=== PATIENT | female | born 1945 | race Caucasian/White ===

== ENCOUNTER 2018-01-28 14:31 | Emergency (ER) | payer MEDICARE, BC ==
[~2018-01-28] VITALS: Ht 152.4 cm; Wt 53.0 kg
[2018-01-28 15:30] LABS: BASOPHILS # (AUTO) 0.02 x10^3/uL (0-0.1); BASOPHILS % (AUTO) 0 % (0-1); EOSINOPHILS # (AUTO) 0.01 x10^3/uL (0-0.4); EOSINOPHILS % (AUTO) 0 % (1-7); INTERNATIONAL NORMALIZED RATIO 1.06 (0.93-1.1); LYMPHOCYTES # (AUTO) 0.83 x10^3/uL (1-3.4); LYMPHOCYTES % (AUTO) 18 % (22-44); MD NO; MEAN CORPUSCULAR HEMOGLOBIN 32.6 pg (27.0-34.8); MEAN CORPUSCULAR HGB CONC 34.2 g/dL (32.4-35.8); MEAN CORPUSCULAR VOLUME 95.1 fL (80-100); MEAN PLATELET VOLUME 8.6 fL (7.4-10.4); MONOCYTES # (AUTO) 0.54 x10^3/uL (0.2-0.8); MONOCYTES % (AUTO) 12 % (2-9); NEUTROPHILS # (AUTO) 3.24 x10^3/uL (1.8-6.8); NEUTROPHILS % (AUTO) 70 % (42-75); PLATELET COUNT 249 x10^3/uL (130-400); RED BLOOD COUNT 4.29 x10^6/uL (3.82-5.3); RED CELL DISTRIBUTION WIDTH 13.8 % (9.6-15.2)
[2018-01-28 15:33] LABS: ALBUMIN 4.2 g/dL (3.4-5.0); ANION GAP 12 mmol/L (5-15); CALCIUM 9.2 mg/dL (8.5-10.1); CHLORIDE 105 mmol/L (98-107)
[2018-01-28 15:36] LABS: ALANINE AMINOTRANSFERASE 43 U/L (12-78); ALKALINE PHOSPHATASE 57 U/L (45-117); BILIRUBIN,TOTAL 1.6 mg/dL (0.2-1.0); CREATININE 0.72 mg/dL (0.55-1.02); TOTAL PROTEIN 7.6 g/dL (6.4-8.2)
[2018-01-28 16:09] LABS: ACETONE, SERUM Trace (10mg/dL) mg/dL (Negative)
[2018-01-28] MEDS ORDERED: POTASSIUM CHLORIDE 20 MEQ TAB.ER.PRT PO ONE (16:30)
[2018-01-28] MEDS ORDERED: POTASSIUM CHLORIDE 20 MEQ PACKET ONE (16:55)
[2018-01-28 17:03] LABS: MICROSCOPIC INDICATED
[2018-01-28 17:12] LABS: CULTURE INDICATED? NO
[2018-01-28 18:33] VITALS: BP 167/94
== END 2018-01-28 20:03 ==
LOC: ED 18:38
DX: R10.9 Unspecified abdominal pain (principal); R41.82 Altered mental status, unspecified
CPT/HCPCS: 36415; 80053; 81001; 82010; 82140; 83605; 83690; 85025; 85610; 93005; 99285

== ENCOUNTER 2018-01-31 11:22 | Inpatient (IN) | payer MEDICARE, BC ==
[~2018-01-31] VITALS: Ht 162.6 cm; Wt 41.6 kg
[2018-01-31] MEDS ORDERED: SODIUM CHLORIDE 0.9% 1,000 ML IV ONE (11:34)
[2018-01-31 11:57] LABS: BASOPHILS # (AUTO) 0.02 x10^3/uL (0-0.1); BASOPHILS % (AUTO) 1 % (0-1); EOSINOPHILS # (AUTO) 0.01 x10^3/uL (0-0.4); EOSINOPHILS % (AUTO) 0 % (1-7); LYMPHOCYTES # (AUTO) 0.92 x10^3/uL (1-3.4); LYMPHOCYTES % (AUTO) 29 % (22-44); MD NO; MEAN CORPUSCULAR HEMOGLOBIN 31.8 pg (27.0-34.8); MEAN CORPUSCULAR HGB CONC 33.8 g/dL (32.4-35.8); MEAN PLATELET VOLUME 8.1 fL (7.4-10.4); MONOCYTES # (AUTO) 0.29 x10^3/uL (0.2-0.8); MONOCYTES % (AUTO) 9 % (2-9); NEUTROPHILS # (AUTO) 1.92 x10^3/uL (1.8-6.8); NEUTROPHILS % (AUTO) 61 % (42-75); PLATELET COUNT 258 x10^3/uL (130-400); RED BLOOD COUNT 4.51 x10^6/uL (3.82-5.3); RED CELL DISTRIBUTION WIDTH 13.4 % (9.6-15.2)
[2018-01-31 11:59] LABS: MICROSCOPIC INDICATED
[2018-01-31] MEDS ORDERED: MORPHINE SULFATE 4 MG/ML, 1ML IVPush PRN (12:00)
[2018-01-31] MEDS ORDERED: SODIUM CHLORIDE FLUSH 10ML SYR IVF ONE (12:00)
[2018-01-31] MEDS ORDERED: PLEASE ENTER HEIGHT AND WEIGHT MC SCH (12:00)
[2018-01-31 12:07] LABS: ALANINE AMINOTRANSFERASE 35 U/L (12-78); ALBUMIN 3.5 g/dL (3.4-5.0); ANION GAP 11 mmol/L (5-15); CALCIUM 8.9 mg/dL (8.5-10.1); CHLORIDE 107 mmol/L (98-107); CREATININE 0.92 mg/dL (0.55-1.02)
[2018-01-31 12:08] LABS: CULTURE INDICATED? YES
[2018-01-31 12:09] LABS: ALKALINE PHOSPHATASE 60 U/L (45-117); BILIRUBIN,TOTAL 1.7 mg/dL (0.2-1.0); TOTAL PROTEIN 6.9 g/dL (6.4-8.2)
[2018-01-31] MEDS ORDERED: LORazepam 2 MG/ML, 1ML ONE ×2 (12:18→12:36)
[2018-01-31] MEDS ORDERED: LORazepam 2 MG/ML, 1ML IVPush ONE ×2 (12:30→13:00)
[2018-01-31] MEDS ORDERED: CEFTRIAXONE PMX 1GM/50ML 50 ML IV ONE (12:30)
[2018-01-31] MEDS ORDERED: OMNIPAQUE 350 MG/ML, 100ML BOTTLE ONE (12:54)
[2018-01-31] MEDS ORDERED: CEFTRIAXONE PMX 1GM/50ML 50 ML ONE (13:37)
[2018-01-31] MEDS ORDERED: LABETALOL 5MG/ML, 20ML IVPush PRN (14:00)
[2018-01-31] MEDS: BISACODYL 5 MG EC TABLET PO SCH (14:00)
[2018-01-31] MEDS ORDERED: ONDANSETRON 2MG/ML, 2ML IVPush PRN (14:00)
[2018-01-31] MEDS ORDERED: POLYETHYLENE GLYCOL 17 GM PACKET PO PRN (14:00)
[2018-01-31] MEDS ORDERED: ONDANSETRON ODT 4 MG PO PRN (14:00)
[2018-01-31] MEDS: ENOXAPARIN 40 MG/0.4 ML SQ SCH (14:00)
[2018-01-31 14:15] LABS: FREE T4 (FREE THYROXINE) 1.09 ng/dL (0.76-1.46)
[2018-01-31] MEDS ORDERED: QUET50TA5 PO (14:17)
[2018-01-31] MEDS ORDERED: FLUO20CA19 PO (14:19)
[2018-01-31] MEDS ORDERED: ARIP10TA33 PO (14:20)
[2018-01-31] MEDS ORDERED: ACET325C5 PO (14:23)
[2018-01-31] MEDS ORDERED: MAG355OR15 PO (14:25)
[2018-01-31 19:03] VITALS: BP 116/73
[2018-01-31] MEDS: QUETIAPINE 25MG TABLET PO SCH (20:42)
[2018-02-01 00:51] VITALS: BP 116/67
[2018-02-01 05:41] LABS: MEAN CORPUSCULAR HEMOGLOBIN 32.4 pg (27.0-34.8); MEAN CORPUSCULAR HGB CONC 34.2 g/dL (32.4-35.8); MEAN CORPUSCULAR VOLUME 94.7 fL (80-100); MEAN PLATELET VOLUME 8.3 fL (7.4-10.4); PLATELET COUNT 200 x10^3/uL (130-400); RED BLOOD COUNT 3.83 x10^6/uL (3.82-5.3); RED CELL DISTRIBUTION WIDTH 13.5 % (9.6-15.2)
[2018-02-01 05:51] LABS: ANION GAP 7 mmol/L (5-15); CALCIUM 8.4 mg/dL (8.5-10.1); CHLORIDE 106 mmol/L (98-107); CREATININE 0.62 mg/dL (0.55-1.02)
[2018-02-01 06:12] LABS: MD YES
[2018-02-01 06:18] LABS: <PLATELET ESTIMATE> ADEQUATE; <PLT MORPHOLOGY> NORMAL PLT MORPH; BASOS#(MANUAL) 0.03 x10^3/uL (0-0.1); BASOS% (MANUAL) 1 % (0-1); EOS#(MANUAL) 0.06 x10^3/uL (0.0-0.4); EOS% (MANUAL) 2 % (1-7); LYMPH#(MANUAL) 1.54 x10^3/uL (1-3.4); LYMPHS% (MANUAL) 48 % (22-44); MONOS% (MANUAL) 3 % (2-9); SEG#(MANUAL) 1.47 x10^3/uL (1.8-6.8); SEGS% (MANUAL) 46 % (42-75)
[2018-02-01 06:48] LABS: <RBC MORPHOLOGY> NORMAL
[2018-02-01 07:01] VITALS: BP 121/67
[2018-02-01] MEDS: ENOXAPARIN 40 MG/0.4 ML SQ SCH (07:24)
[2018-02-01] MEDS: MAGNESIUM HYDROXIDE 8%, 30ML UDC PO SCH (07:24)
[2018-02-01] MEDS: SENNA/DOCUSATE TABLET PO SCH (07:24)
[2018-02-01] MEDS: BISACODYL 5 MG EC TABLET PO SCH (07:24)
[2018-02-01] MEDS ORDERED: POTASSIUM CHLORIDE 20 MEQ TAB.ER.PRT PO ONE ×2 (07:30→11:30)
[2018-02-01] MEDS ORDERED: ACETAMINOPHEN 325 MG TABLET PO PRN (07:30)
[2018-02-01] MEDS ORDERED: PINK LADY ENEMA 490 ML BOTTLE PR SCH (07:30)
[2018-02-01] MEDS: FLUOXETINE HCL 20 MG CAPSULE PO SCH (07:37)
[2018-02-01] MEDS: ARIPIPRAZOLE 10 MG TABLET PO SCH (07:48)
[2018-02-01] MEDS: SODIUM CHLORIDE 0.45% 1,000 ML IV SCH ×2 (07:48→16:24)
[2018-02-01 13:53] VITALS: BP 121/79
[2018-02-01 19:00] VITALS: BP 129/77
[2018-02-01] MEDS: QUETIAPINE 25MG TABLET PO SCH (20:02)
[2018-02-02] MEDS: SODIUM CHLORIDE 0.45% 1,000 ML IV SCH ×3 (00:37→17:37)
[2018-02-02 01:31] VITALS: BP 147/77
[2018-02-02 05:36] LABS: BASOPHILS # (AUTO) 0.03 x10^3/uL (0-0.1); BASOPHILS % (AUTO) 1 % (0-1); EOSINOPHILS # (AUTO) 0.08 x10^3/uL (0-0.4); EOSINOPHILS % (AUTO) 2 % (1-7); LYMPHOCYTES % (AUTO) 30 % (22-44); MD NO; MEAN CORPUSCULAR HEMOGLOBIN 32.5 pg (27.0-34.8); MEAN CORPUSCULAR HGB CONC 34.3 g/dL (32.4-35.8); MEAN CORPUSCULAR VOLUME 94.9 fL (80-100); MEAN PLATELET VOLUME 8.4 fL (7.4-10.4); MONOCYTES # (AUTO) 0.37 x10^3/uL (0.2-0.8); MONOCYTES % (AUTO) 10 % (2-9); NEUTROPHILS # (AUTO) 2.07 x10^3/uL (1.8-6.8); NEUTROPHILS % (AUTO) 57 % (42-75); PLATELET COUNT 213 x10^3/uL (130-400); RED BLOOD COUNT 3.85 x10^6/uL (3.82-5.3); RED CELL DISTRIBUTION WIDTH 13.3 % (9.6-15.2)
[2018-02-02 05:46] LABS: ANION GAP 8 mmol/L (5-15); CALCIUM 8.2 mg/dL (8.5-10.1); CHLORIDE 106 mmol/L (98-107)
[2018-02-02 05:47] LABS: CREATININE 0.59 mg/dL (0.55-1.02)
[2018-02-02 06:43] VITALS: BP 127/72
[2018-02-02] MEDS: MAGNESIUM HYDROXIDE 8%, 30ML UDC PO SCH (09:07)
[2018-02-02] MEDS: ARIPIPRAZOLE 10 MG TABLET PO SCH (09:07)
[2018-02-02] MEDS: FLUOXETINE HCL 20 MG CAPSULE PO SCH (09:07)
[2018-02-02] MEDS: BISACODYL 5 MG EC TABLET PO SCH (09:07)
[2018-02-02] MEDS: ENOXAPARIN 40 MG/0.4 ML SQ SCH (09:11)
[2018-02-02] MEDS: SENNA/DOCUSATE TABLET PO SCH (09:12)
[2018-02-02] MEDS: AMPICILLIN/SULBACTAM 3 GM in SODIUM CHLORIDE 0.9% 100 ML IV SCH ×3 (12:10→23:43)
[2018-02-02 14:16] VITALS: BP 128/73
[2018-02-02 19:17] VITALS: BP 128/70
[2018-02-02] MEDS: QUETIAPINE 25MG TABLET PO SCH (21:09)
[2018-02-03] MEDS: SODIUM CHLORIDE 0.45% 1,000 ML IV SCH ×3 (01:07→23:39)
[2018-02-03 03:15] VITALS: BP 121/71
[2018-02-03 04:50] LABS: BASOPHILS # (AUTO) 0.03 x10^3/uL (0-0.1); BASOPHILS % (AUTO) 1 % (0-1); EOSINOPHILS # (AUTO) 0.09 x10^3/uL (0-0.4); EOSINOPHILS % (AUTO) 3 % (1-7); LYMPHOCYTES % (AUTO) 36 % (22-44); MD NO; MEAN CORPUSCULAR HEMOGLOBIN 32.9 pg (27.0-34.8); MEAN CORPUSCULAR HGB CONC 34.7 g/dL (32.4-35.8); MEAN CORPUSCULAR VOLUME 94.8 fL (80-100); MEAN PLATELET VOLUME 8.3 fL (7.4-10.4); MONOCYTES # (AUTO) 0.33 x10^3/uL (0.2-0.8); MONOCYTES % (AUTO) 11 % (2-9); NEUTROPHILS # (AUTO) 1.49 x10^3/uL (1.8-6.8); NEUTROPHILS % (AUTO) 49 % (42-75); PLATELET COUNT 208 x10^3/uL (130-400); RED BLOOD COUNT 3.77 x10^6/uL (3.82-5.3); RED CELL DISTRIBUTION WIDTH 13.3 % (9.6-15.2)
[2018-02-03 04:59] LABS: ALBUMIN 2.9 g/dL (3.4-5.0); ANION GAP 8 mmol/L (5-15); CALCIUM 7.9 mg/dL (8.5-10.1); CHLORIDE 106 mmol/L (98-107); CREATININE 0.62 mg/dL (0.55-1.02)
[2018-02-03] MEDS: AMPICILLIN/SULBACTAM 3 GM in SODIUM CHLORIDE 0.9% 100 ML IV SCH ×4 (05:16→23:35)
[2018-02-03] MEDS ORDERED: POTASSIUM CHLORIDE 20 MEQ TAB.ER.PRT PO ONE ×2 (07:30→11:30)
[2018-02-03 08:43] VITALS: BP 116/69
[2018-02-03] MEDS: MAGNESIUM HYDROXIDE 8%, 30ML UDC PO SCH (09:00)
[2018-02-03] MEDS: BISACODYL 5 MG EC TABLET PO SCH (09:00)
[2018-02-03] MEDS: ARIPIPRAZOLE 10 MG TABLET PO SCH (09:35)
[2018-02-03] MEDS: FLUOXETINE HCL 20 MG CAPSULE PO SCH (09:37)
[2018-02-03] MEDS: SENNA/DOCUSATE TABLET PO SCH (09:37)
[2018-02-03] MEDS: ENOXAPARIN 40 MG/0.4 ML SQ SCH (09:41)
[2018-02-03 12:45] VITALS: BP 127/72
[2018-02-03 18:29] VITALS: BP 145/83
[2018-02-03] MEDS: QUETIAPINE 25MG TABLET PO SCH (19:59)
[2018-02-04 01:22] VITALS: BP 135/80
[2018-02-04] MEDS: AMPICILLIN/SULBACTAM 3 GM in SODIUM CHLORIDE 0.9% 100 ML IV SCH ×4 (05:47→23:50)
[2018-02-04 07:05] VITALS: BP 123/70
[2018-02-04] MEDS: SODIUM CHLORIDE 0.45% 1,000 ML IV SCH ×2 (08:22→17:47)
[2018-02-04] MEDS: BISACODYL 5 MG EC TABLET PO SCH (09:00)
[2018-02-04] MEDS: MAGNESIUM HYDROXIDE 8%, 30ML UDC PO SCH (09:00)
[2018-02-04] MEDS: SENNA/DOCUSATE TABLET PO SCH (09:00)
[2018-02-04] MEDS: ARIPIPRAZOLE 10 MG TABLET PO SCH (09:12)
[2018-02-04] MEDS: FLUOXETINE HCL 20 MG CAPSULE PO SCH (09:12)
[2018-02-04] MEDS: ENOXAPARIN 40 MG/0.4 ML SQ SCH (09:12)
[2018-02-04 13:00] VITALS: BP 131/80
[2018-02-04 18:41] VITALS: BP 138/79
[2018-02-04] MEDS: QUETIAPINE 25MG TABLET PO SCH (19:31)
[2018-02-05 02:12] VITALS: BP 127/69
[2018-02-05] MEDS: SODIUM CHLORIDE 0.45% 1,000 ML IV SCH (02:24)
[2018-02-05 04:58] LABS: ALBUMIN 3.1 g/dL (3.4-5.0); ANION GAP 5 mmol/L (5-15); CALCIUM 8.3 mg/dL (8.5-10.1); CHLORIDE 104 mmol/L (98-107); CREATININE 0.76 mg/dL (0.55-1.02)
[2018-02-05] MEDS: AMPICILLIN/SULBACTAM 3 GM in SODIUM CHLORIDE 0.9% 100 ML IV SCH (05:43)
[2018-02-05 07:05] VITALS: BP 136/78
[2018-02-05] MEDS: BISACODYL 5 MG EC TABLET PO SCH (09:00)
[2018-02-05] MEDS: MAGNESIUM HYDROXIDE 8%, 30ML UDC PO SCH (09:00)
[2018-02-05] MEDS: SENNA/DOCUSATE TABLET PO SCH (09:07)
[2018-02-05] MEDS: ARIPIPRAZOLE 10 MG TABLET PO SCH (09:08)
[2018-02-05] MEDS: FLUOXETINE HCL 20 MG CAPSULE PO SCH (09:08)
[2018-02-05] MEDS: ENOXAPARIN 40 MG/0.4 ML SQ SCH (09:08)
[2018-02-05 14:02] VITALS: BP 102/64
[2018-02-05 19:27] VITALS: BP 104/63
[2018-02-05] MEDS: QUETIAPINE 25MG TABLET PO SCH (20:45)
[2018-02-05] MEDS: AMOXICILLIN/CLAV 875-125MG TABLET PO SCH (20:45)
[2018-02-06 01:40] VITALS: BP 118/82
[2018-02-06 06:54] VITALS: BP 121/67
[2018-02-06] MEDS: SENNA/DOCUSATE TABLET PO SCH (08:54)
[2018-02-06] MEDS: ARIPIPRAZOLE 10 MG TABLET PO SCH (08:54)
[2018-02-06] MEDS: AMOXICILLIN/CLAV 875-125MG TABLET PO SCH ×2 (08:54→20:48)
[2018-02-06] MEDS: ENOXAPARIN 40 MG/0.4 ML SQ SCH (08:55)
[2018-02-06] MEDS: FLUOXETINE HCL 20 MG CAPSULE PO SCH (08:55)
[2018-02-06] MEDS: BISACODYL 5 MG EC TABLET PO SCH (08:56)
[2018-02-06] MEDS: MAGNESIUM HYDROXIDE 8%, 30ML UDC PO SCH (08:56)
[2018-02-06 14:20] VITALS: BP 112/70
[2018-02-06 15:21] LABS: ACETAMINOPHEN 3 mcg/mL (10-30)
[2018-02-06 15:22] LABS: SALICYLATE LEVEL < 1.7 mg/dL (2.8-20.0)
[2018-02-06 19:42] VITALS: BP 116/75
[2018-02-06] MEDS: QUETIAPINE 25MG TABLET PO SCH (20:48)
[2018-02-07 01:33] VITALS: BP 133/77
[2018-02-07 05:15] LABS: AMPHETAMINE SCREEN, URINE Negative (Negative); BARBITURATE SCREEN, URINE Negative (Negative); BENZODIAZEPINE SCREEN, URINE Negative (Negative); CANNABINOID SCREEN, URINE Negative (Negative); COCAINE SCREEN, URINE Negative (Negative); METHADONE SCREEN, URINE Negative (Negative); OPIATE SCREEN, URINE Negative (Negative)
[2018-02-07 07:15] VITALS: BP 125/70
[2018-02-07] MEDS: BISACODYL 5 MG EC TABLET PO SCH (09:25)
[2018-02-07] MEDS: ARIPIPRAZOLE 10 MG TABLET PO SCH (09:25)
[2018-02-07] MEDS: AMOXICILLIN/CLAV 875-125MG TABLET PO SCH ×2 (09:25→21:34)
[2018-02-07] MEDS: MAGNESIUM HYDROXIDE 8%, 30ML UDC PO SCH (09:26)
[2018-02-07] MEDS: FLUOXETINE HCL 20 MG CAPSULE PO SCH (09:26)
[2018-02-07] MEDS: ENOXAPARIN 40 MG/0.4 ML SQ SCH (09:26)
[2018-02-07] MEDS: SENNA/DOCUSATE TABLET PO SCH (11:33)
[2018-02-07 14:20] VITALS: BP 111/68
[2018-02-07 19:51] VITALS: BP 117/71
[2018-02-07] MEDS: QUETIAPINE 25MG TABLET PO SCH (21:35)
[2018-02-08 03:19] VITALS: BP 116/76
[2018-02-08 06:58] VITALS: BP 128/77
[2018-02-08] MEDS: FLUOXETINE HCL 20 MG CAPSULE PO SCH (08:36)
[2018-02-08] MEDS: AMOXICILLIN/CLAV 875-125MG TABLET PO SCH (08:36)
[2018-02-08] MEDS: MAGNESIUM HYDROXIDE 8%, 30ML UDC PO SCH (08:37)
[2018-02-08] MEDS: BISACODYL 5 MG EC TABLET PO SCH (08:37)
[2018-02-08] MEDS: SENNA/DOCUSATE TABLET PO SCH (08:37)
[2018-02-08] MEDS: ARIPIPRAZOLE 10 MG TABLET PO SCH (08:37)
[2018-02-08] MEDS: ENOXAPARIN 40 MG/0.4 ML SQ SCH (08:37)
[2018-02-08 12:21] VITALS: BP 125/72
[2018-02-09] MEDS ORDERED: AMOX1TAB64 PO (15:09)
== END 2018-02-08 16:11 | DRG 871 ==
LOC: ED 12:15 → EDIP 13:03 → 3NE 14:05
PROVIDERS: ADMIT Hospitalist; ATTEND Hospitalist
PROC: 0T9B70Z Drainage of Bladder with Drainage Device, Via Natural or Artificial Opening (ICD-10-PCS; principal; 2018-01-31)
DX: A41.9 Sepsis, unspecified organism (principal); E43 Unspecified severe protein-calorie malnutrition; N39.0 Urinary tract infection, site not specified; F23 Brief psychotic disorder; F32.3 Major depressive disorder, single episode, severe with psychotic features; K59.00 Constipation, unspecified; R33.9 Retention of urine, unspecified; B95.2 Enterococcus as the cause of diseases classified elsewhere; E03.9 Hypothyroidism, unspecified; F43.10 Post-traumatic stress disorder, unspecified; G31.84 Mild cognitive impairment of uncertain or unknown etiology; F41.9 Anxiety disorder, unspecified; Z79.899 Other long term (current) drug therapy; Z81.8 Family history of other mental and behavioral disorders
CPT/HCPCS: 36415; 74177; 80048; 80053; 80307; 80329; 81001; 82040; 83690; 83735; 84100; 84439; 84443; 85025; 87040; 87077; 87086; 87186; 96374; 96376; G0378; J0295; J0696; J1650; Q9967; 92522-GN; G0480; G0515-GN; J2060; J7030

== ENCOUNTER 2018-02-08 15:09 | Inpatient (IN) | payer MEDICARE, BC ==
[~2018-02-08] VITALS: Ht 160 cm; Wt 42.7 kg
[~2018-02-08 15:09] MED LIST: ACET325C5 PO; ARIP10TA33 PO; FLUO20CA19 PO; MAG355OR15 PO; QUET50TA5 PO
[2018-02-08] MEDS ORDERED: ONDANSETRON ODT 4 MG PO PRN (15:30)
[2018-02-08] MEDS ORDERED: BISACODYL 10 MG SUPP PR PRN (15:30)
[2018-02-08] MEDS ORDERED: PLEASE ENTER HEIGHT AND WEIGHT MC SCH (16:00)
[2018-02-08 16:11] VITALS: BP 128/79
[2018-02-08 19:12] VITALS: BP 119/73
[2018-02-08] MEDS: ACETAMINOPHEN 325 MG TABLET PO PRN (20:52)
[2018-02-08] MEDS: AMOXICILLIN/CLAV 875-125MG TABLET PO SCH (20:52)
[2018-02-08] MEDS: DOCUSATE 100 MG CAPSULE PO PRN (20:53)
[2018-02-09 06:29] LABS: CHOL/HDL RATIO 3.7; LDL/HDL RATIO 1.9 (0.5-3.0)
[2018-02-09 07:24] VITALS: BP 126/71
[2018-02-09] MEDS: SENNA/DOCUSATE TABLET PO SCH (08:58)
[2018-02-09] MEDS: DOCUSATE 100 MG CAPSULE PO PRN (08:58)
[2018-02-09] MEDS: AMOXICILLIN/CLAV 875-125MG TABLET PO SCH ×2 (08:58→20:22)
[2018-02-09] MEDS ORDERED: AMOX1TAB64 PO (15:09)
[2018-02-09 19:58] VITALS: BP 124/77
[2018-02-09] MEDS: QUETIAPINE 25MG TABLET PO SCH (20:22)
[2018-02-10 07:05] VITALS: BP 143/76
[2018-02-10] MEDS: SENNA/DOCUSATE TABLET PO SCH (08:50)
[2018-02-10] MEDS: AMOXICILLIN/CLAV 875-125MG TABLET PO SCH (08:50)
[2018-02-10] MEDS: ARIPIPRAZOLE 10 MG TABLET PO SCH (08:50)
[2018-02-10] MEDS: FLUOXETINE HCL 20 MG CAPSULE PO SCH (08:50)
[2018-02-10 19:35] VITALS: BP 127/73
[2018-02-10] MEDS: DOCUSATE 100 MG CAPSULE PO PRN (20:31)
[2018-02-10] MEDS: QUETIAPINE 25MG TABLET PO SCH (20:31)
[2018-02-11 07:05] VITALS: BP 138/76
[2018-02-11] MEDS: ARIPIPRAZOLE 10 MG TABLET PO SCH (08:26)
[2018-02-11] MEDS: SENNA/DOCUSATE TABLET PO SCH (08:26)
[2018-02-11] MEDS: FLUOXETINE HCL 20 MG CAPSULE PO SCH (08:26)
[2018-02-11 19:21] VITALS: BP 121/79
[2018-02-11] MEDS: QUETIAPINE 25MG TABLET PO SCH (20:14)
[2018-02-12 07:58] VITALS: BP 113/68
[2018-02-12] MEDS: FOLIC ACID 1 MG TABLET PO SCH (08:38)
[2018-02-12] MEDS: FLUOXETINE HCL 20 MG CAPSULE PO SCH (08:39)
[2018-02-12] MEDS: ARIPIPRAZOLE 10 MG TABLET PO SCH (08:39)
[2018-02-12] MEDS: SENNA/DOCUSATE TABLET PO SCH (09:00)
[2018-02-12 19:23] VITALS: BP 105/68
[2018-02-12] MEDS: QUETIAPINE 25MG TABLET PO SCH (21:42)
[2018-02-13 07:47] VITALS: BP 123/69
[2018-02-13] MEDS: ARIPIPRAZOLE 10 MG TABLET PO SCH (08:27)
[2018-02-13] MEDS: FLUOXETINE HCL 20 MG CAPSULE PO SCH (08:27)
[2018-02-13] MEDS: FOLIC ACID 1 MG TABLET PO SCH (08:27)
[2018-02-13] MEDS: SENNA/DOCUSATE TABLET PO SCH (08:34)
[2018-02-13 19:25] VITALS: BP 119/77
[2018-02-13] MEDS: QUETIAPINE 25MG TABLET PO SCH (20:35)
[2018-02-13] MEDS: DOCUSATE 100 MG CAPSULE PO PRN (20:35)
[2018-02-14 07:21] VITALS: BP 124/69
[2018-02-14] MEDS: ARIPIPRAZOLE 10 MG TABLET PO SCH (08:39)
[2018-02-14] MEDS: FLUOXETINE HCL 20 MG CAPSULE PO SCH (08:39)
[2018-02-14] MEDS: FOLIC ACID 1 MG TABLET PO SCH (08:39)
[2018-02-14] MEDS: SENNA/DOCUSATE TABLET PO SCH (08:40)
[2018-02-14] MEDS: DOCUSATE 100 MG CAPSULE PO PRN (08:40)
[2018-02-14 19:52] VITALS: BP 142/82
[2018-02-14] MEDS: QUETIAPINE 25MG TABLET PO SCH (20:16)
[2018-02-15 07:56] VITALS: BP 126/74
[2018-02-15] MEDS: SENNA/DOCUSATE TABLET PO SCH (08:59)
[2018-02-15] MEDS: CARIPRAZINE 1.5 MG HOMEMEDPO SCH (08:59)
[2018-02-15] MEDS: FOLIC ACID 1 MG TABLET PO SCH (08:59)
[2018-02-15] MEDS: FLUOXETINE HCL 20 MG CAPSULE PO SCH (09:00)
[2018-02-15 19:35] VITALS: BP 118/77
[2018-02-15] MEDS: QUETIAPINE 25MG TABLET PO SCH (20:26)
[2018-02-16 07:35] VITALS: BP 133/78
[2018-02-16] MEDS: SENNA/DOCUSATE TABLET PO SCH (08:35)
[2018-02-16] MEDS: CARIPRAZINE 1.5 MG HOMEMEDPO SCH (08:35)
[2018-02-16] MEDS: FOLIC ACID 1 MG TABLET PO SCH (08:35)
[2018-02-16] MEDS: FLUOXETINE HCL 20 MG CAPSULE PO SCH (08:35)
[2018-02-16 19:33] VITALS: BP 129/80
[2018-02-16] MEDS: QUETIAPINE 25MG TABLET PO SCH (20:28)
[2018-02-17 07:52] VITALS: BP 138/76
[2018-02-17] MEDS: SENNA/DOCUSATE TABLET PO SCH (08:39)
[2018-02-17] MEDS: CARIPRAZINE 1.5 MG HOMEMEDPO SCH (08:39)
[2018-02-17] MEDS: FLUOXETINE HCL 20 MG CAPSULE PO SCH (08:39)
[2018-02-17] MEDS: FOLIC ACID 1 MG TABLET PO SCH (08:39)
[2018-02-17 19:26] VITALS: BP 111/75
[2018-02-17] MEDS: QUETIAPINE 25MG TABLET PO SCH (20:26)
[2018-02-18 07:16] VITALS: BP 128/72
[2018-02-18] MEDS: FLUOXETINE HCL 20 MG CAPSULE PO SCH (08:28)
[2018-02-18] MEDS: CARIPRAZINE 3 MG HOMEMEDPO SCH (08:28)
[2018-02-18] MEDS: FOLIC ACID 1 MG TABLET PO SCH (08:28)
[2018-02-18] MEDS: SENNA/DOCUSATE TABLET PO SCH (08:28)
[2018-02-18 19:15] VITALS: BP 122/71
[2018-02-18] MEDS: QUETIAPINE 25MG TABLET PO SCH (20:24)
[2018-02-19 07:30] VITALS: BP 114/75
[2018-02-19] MEDS: CARIPRAZINE 3 MG HOMEMEDPO SCH (09:10)
[2018-02-19] MEDS: FOLIC ACID 1 MG TABLET PO SCH (09:11)
[2018-02-19] MEDS: SENNA/DOCUSATE TABLET PO SCH (09:11)
[2018-02-19] MEDS: FLUOXETINE HCL 20 MG CAPSULE PO SCH (09:11)
[2018-02-19 19:52] VITALS: BP 109/69
[2018-02-19] MEDS: QUETIAPINE 25MG TABLET PO SCH (20:31)
[2018-02-20 07:59] VITALS: BP 122/73
[2018-02-20] MEDS: CARIPRAZINE 3 MG HOMEMEDPO SCH (09:30)
[2018-02-20] MEDS: SENNA/DOCUSATE TABLET PO SCH (09:30)
[2018-02-20] MEDS: FLUOXETINE HCL 20 MG CAPSULE PO SCH (09:30)
[2018-02-20] MEDS: FOLIC ACID 1 MG TABLET PO SCH (09:30)
[2018-02-20 19:54] VITALS: BP 122/76
[2018-02-20] MEDS: QUETIAPINE 25MG TABLET PO SCH (21:27)
[2018-02-21 07:48] VITALS: BP 128/75
[2018-02-21] MEDS: SENNA/DOCUSATE TABLET PO SCH (09:58)
[2018-02-21] MEDS: FOLIC ACID 1 MG TABLET PO SCH (09:58)
[2018-02-21] MEDS: FLUOXETINE HCL 20 MG CAPSULE PO SCH (09:58)
[2018-02-21] MEDS: CARIPRAZINE 3 MG HOMEMEDPO SCH (09:59)
[2018-02-21 19:40] VITALS: BP 138/78
[2018-02-21] MEDS: QUETIAPINE 25MG TABLET PO SCH (21:01)
[2018-02-22 07:36] VITALS: BP 169/89
[2018-02-22] MEDS: FOLIC ACID 1 MG TABLET PO SCH (09:13)
[2018-02-22] MEDS: SENNA/DOCUSATE TABLET PO SCH (09:13)
[2018-02-22] MEDS: FLUOXETINE HCL 20 MG CAPSULE PO SCH (09:13)
[2018-02-22] MEDS: CARIPRAZINE 3 MG HOMEMEDPO SCH (09:28)
[2018-02-22 19:53] VITALS: BP 153/80
[2018-02-22] MEDS: QUETIAPINE 25MG TABLET PO SCH (20:11)
[2018-02-23 07:36] VITALS: BP 152/84
[2018-02-23] MEDS: CARIPRAZINE 3 MG HOMEMEDPO SCH (08:47)
[2018-02-23] MEDS: FLUOXETINE HCL 20 MG CAPSULE PO SCH (08:48)
[2018-02-23] MEDS: SENNA/DOCUSATE TABLET PO SCH ×2 (08:48→09:00)
[2018-02-23] MEDS: FOLIC ACID 1 MG TABLET PO SCH (08:48)
[2018-02-23 19:38] VITALS: BP 132/84
[2018-02-23] MEDS: QUETIAPINE 25MG TABLET PO SCH (20:31)
[2018-02-24 07:16] VITALS: BP 125/71
[2018-02-24] MEDS: CARIPRAZINE 3 MG HOMEMEDPO SCH (09:00)
[2018-02-24] MEDS: SENNA/DOCUSATE TABLET PO SCH (09:34)
[2018-02-24] MEDS: FOLIC ACID 1 MG TABLET PO SCH (09:34)
[2018-02-24] MEDS: FLUOXETINE HCL 20 MG CAPSULE PO SCH (09:34)
[2018-02-24 19:30] VITALS: BP 124/75
[2018-02-24] MEDS: QUETIAPINE 25MG TABLET PO SCH (20:46)
[2018-02-25 07:44] VITALS: BP 138/82
[2018-02-25] MEDS: CARIPRAZINE 3 MG HOMEMEDPO SCH (08:46)
[2018-02-25] MEDS: FOLIC ACID 1 MG TABLET PO SCH (08:47)
[2018-02-25] MEDS: SENNA/DOCUSATE TABLET PO SCH (08:48)
[2018-02-25] MEDS: FLUOXETINE HCL 20 MG CAPSULE PO SCH (08:48)
[2018-02-25 19:41] VITALS: BP 130/79
[2018-02-25] MEDS: QUETIAPINE 25MG TABLET PO SCH (20:42)
[2018-02-26] MEDS: FLUOXETINE HCL 20 MG CAPSULE PO SCH (08:29)
[2018-02-26] MEDS: POLYETHYLENE GLYCOL 17 GM PACKET PO PRN (08:29)
[2018-02-26] MEDS: CARIPRAZINE 4.5 MG HOMEMEDPO SCH (08:30)
[2018-02-26] MEDS: FOLIC ACID 1 MG TABLET PO SCH (08:30)
[2018-02-26] MEDS: SENNA/DOCUSATE TABLET PO SCH (08:30)
[2018-02-26 08:34] VITALS: BP 144/80
[2018-02-26 19:21] VITALS: BP 136/77
[2018-02-26] MEDS: QUETIAPINE 25MG TABLET PO SCH (20:30)
[2018-02-27 07:20] VITALS: BP 124/76
[2018-02-27] MEDS: CARIPRAZINE 4.5 MG HOMEMEDPO SCH (08:04)
[2018-02-27] MEDS: FLUOXETINE HCL 20 MG CAPSULE PO SCH (08:04)
[2018-02-27] MEDS: SENNA/DOCUSATE TABLET PO SCH (08:04)
[2018-02-27] MEDS: FOLIC ACID 1 MG TABLET PO SCH (08:04)
[2018-02-27] MEDS: POLYETHYLENE GLYCOL 17 GM PACKET PO PRN (08:05)
[2018-02-27 19:25] VITALS: BP 151/81
[2018-02-27] MEDS: DOCUSATE 100 MG CAPSULE PO PRN (20:21)
[2018-02-27] MEDS: QUETIAPINE 25MG TABLET PO SCH (20:21)
[2018-02-27] MEDS: ACETAMINOPHEN 325 MG TABLET PO PRN (20:21)
[2018-02-28 07:34] VITALS: BP 144/76
[2018-02-28] MEDS: SENNA/DOCUSATE TABLET PO SCH (07:55)
[2018-02-28] MEDS: FOLIC ACID 1 MG TABLET PO SCH (07:55)
[2018-02-28] MEDS: FLUOXETINE HCL 20 MG CAPSULE PO SCH (07:55)
[2018-02-28] MEDS: POLYETHYLENE GLYCOL 17 GM PACKET PO PRN (07:56)
[2018-02-28] MEDS: CARIPRAZINE 4.5 MG HOMEMEDPO SCH (08:07)
[2018-02-28 19:38] VITALS: BP 118/80
[2018-02-28] MEDS: ACETAMINOPHEN 325 MG TABLET PO PRN (20:52)
[2018-02-28] MEDS: QUETIAPINE 25MG TABLET PO SCH (20:52)
[2018-03-01 07:46] VITALS: BP 138/83
[2018-03-01] MEDS: CARIPRAZINE 4.5 MG HOMEMEDPO SCH (09:00)
[2018-03-01] MEDS: FOLIC ACID 1 MG TABLET PO SCH (09:22)
[2018-03-01] MEDS: SENNA/DOCUSATE TABLET PO SCH (09:22)
[2018-03-01] MEDS: FLUOXETINE HCL 20 MG CAPSULE PO SCH (09:23)
[2018-03-01 19:33] VITALS: BP 119/55
[2018-03-01] MEDS: QUETIAPINE 25MG TABLET PO SCH (20:27)
[2018-03-02 07:51] VITALS: BP 155/82
[2018-03-02] MEDS: FOLIC ACID 1 MG TABLET PO SCH (08:18)
[2018-03-02] MEDS: SENNA/DOCUSATE TABLET PO SCH (08:18)
[2018-03-02] MEDS: CARIPRAZINE 4.5 MG HOMEMEDPO SCH (08:18)
[2018-03-02] MEDS: FLUOXETINE HCL 20 MG CAPSULE PO SCH (08:18)
[2018-03-02 19:22] VITALS: BP 112/75
[2018-03-02] MEDS: QUETIAPINE 25MG TABLET PO SCH (21:08)
[2018-03-03 07:47] VITALS: BP 167/78
[2018-03-03] MEDS: SENNA/DOCUSATE TABLET PO SCH (08:27)
[2018-03-03] MEDS: CARIPRAZINE 4.5 MG HOMEMEDPO SCH (08:27)
[2018-03-03] MEDS: FOLIC ACID 1 MG TABLET PO SCH (08:27)
[2018-03-03] MEDS: FLUOXETINE HCL 20 MG CAPSULE PO SCH (08:27)
[2018-03-03 19:22] VITALS: BP 110/72
[2018-03-03] MEDS: QUETIAPINE 25MG TABLET PO SCH (21:06)
[2018-03-04 08:52] VITALS: BP 152/82
[2018-03-04] MEDS: CARIPRAZINE 4.5 MG HOMEMEDPO SCH (09:00)
[2018-03-04] MEDS: SENNA/DOCUSATE TABLET PO SCH (09:05)
[2018-03-04] MEDS: FOLIC ACID 1 MG TABLET PO SCH (09:05)
[2018-03-04] MEDS: FLUOXETINE HCL 20 MG CAPSULE PO SCH (09:06)
[2018-03-04 19:19] VITALS: BP 101/68
[2018-03-04] MEDS: QUETIAPINE 25MG TABLET PO SCH (20:03)
[2018-03-05 07:23] VITALS: BP 147/80
[2018-03-05] MEDS: FLUOXETINE HCL 20 MG CAPSULE PO SCH (08:24)
[2018-03-05] MEDS: FOLIC ACID 1 MG TABLET PO SCH (08:24)
[2018-03-05] MEDS: CARIPRAZINE 4.5 MG HOMEMEDPO SCH (08:25)
[2018-03-05] MEDS: SENNA/DOCUSATE TABLET PO SCH (08:25)
[2018-03-05 19:40] VITALS: BP 135/83
[2018-03-05] MEDS: QUETIAPINE 25MG TABLET PO SCH (20:56)
[2018-03-06 07:51] VITALS: BP 144/87
[2018-03-06] MEDS: SENNA/DOCUSATE TABLET PO SCH (08:52)
[2018-03-06] MEDS: FOLIC ACID 1 MG TABLET PO SCH (08:52)
[2018-03-06] MEDS: FLUOXETINE HCL 20 MG CAPSULE PO SCH (08:52)
[2018-03-06] MEDS: CARIPRAZINE 4.5 MG HOMEMEDPO SCH (08:53)
[2018-03-06] MEDS ORDERED: FOLI-17 PO (17:12)
[2018-03-06] MEDS ORDERED: QUET25TA PO (17:12)
[2018-03-06] MEDS ORDERED: CARIPRAZINE HOMEMEDPO (17:12)
[2018-03-06 20:20] VITALS: BP 153/85
[2018-03-06] MEDS: QUETIAPINE 25MG TABLET PO SCH (20:41)
[2018-03-07 07:39] VITALS: BP 156/88
[2018-03-07] MEDS: FLUOXETINE HCL 20 MG CAPSULE PO SCH (09:03)
[2018-03-07] MEDS: CARIPRAZINE 4.5 MG HOMEMEDPO SCH (09:03)
[2018-03-07] MEDS: FOLIC ACID 1 MG TABLET PO SCH (09:03)
[2018-03-07] MEDS: SENNA/DOCUSATE TABLET PO SCH (09:03)
== END 2018-03-07 13:00 | disposition home or self-care (01) | DRG 885 ==
LOC: 3E 15:09
PROVIDERS: ADMIT Psychiatry & Neurology Psychosomatic Medicine; ATTEND Psychiatry & Neurology Psychosomatic Medicine
DX: F23 Brief psychotic disorder (principal); N39.0 Urinary tract infection, site not specified; F33.2 Major depressive disorder, recurrent severe without psychotic features; F43.10 Post-traumatic stress disorder, unspecified; G47.00 Insomnia, unspecified; K59.00 Constipation, unspecified; Z81.8 Family history of other mental and behavioral disorders; Z82.49 Family history of ischemic heart disease and other diseases of the circulatory system; Z84.1 Family history of disorders of kidney and ureter; Z83.6 Family history of other diseases of the respiratory system; Z79.899 Other long term (current) drug therapy
CPT/HCPCS: 36415; 80061; 82607; 85651; 86592; 92523-GN